=== PATIENT | female | born 1955 | race Caucasian/White ===

== ENCOUNTER → 2016-08-08 | Outpatient (CLI) | payer OTHER ==
[2016-08-08 12:50] LABS: MEAN CORPUSCULAR HEMOGLOBIN 33.4 pg (27.0-33.0); MEAN CORPUSCULAR VOLUME 104.4 fl (80.0-96.0); RED CELL DISTRIBUTION WIDTH 12.6 % (11.5-14.5); WHITE BLOOD COUNT 8.8 K/mm3 (4.0-10.0)
[2016-08-08 13:24] LABS: ALBUMIN/GLOBULIN RATIO 1.14 (1.00-1.93); ALKALINE PHOSPHATASE 66 U/L (45-117); ALT/SGPT 17 U/L (12-78); ANION GAP 5 MEQ/L (8-16); AST/SGOT 16 U/L (15-37); BILIRUBIN,TOTAL 0.6 MG/DL (0.2-1.0); BLOOD UREA NITROGEN 15 MG/DL (7-18); CALCIUM LEVEL 9.3 MG/DL (8.8-10.2); CARBON DIOXIDE LEVEL 29 MEQ/L (21-32); CHLORIDE LEVEL 107 MEQ/L (98-107); CHOLESTEROL LEVEL 217 MG/DL (<200); CREATININE FOR GFR 0.63 MG/DL (0.55-1.02); GLOMERULAR FILTRATION RATE > 60.0 (>45); GLUCOSE, FASTING 79 MG/DL (80-110); POTASSIUM SERUM 4.1 MEQ/L (3.5-5.1); SODIUM LEVEL 141 MEQ/L (136-145); TOTAL PROTEIN 7.5 GM/DL (6.4-8.2); TRIGLYCERIDES LEVEL 141 MG/DL (<150)
== END ==
LOC: M WUC 10:21
PROVIDERS: ATTEND Family Medicine
DX: E55.9 Vitamin D deficiency, unspecified (principal); I10 Essential (primary) hypertension

== ENCOUNTER → 2017-07-22 | Outpatient (CLI) | payer OTHER ==
[2017-07-22 16:52] LABS: BASO # 0.1 10^3/uL (0.0-0.2); BASO % 0.7 % (0.0-1.0); EOS # 0.1 10^3/uL (0.0-0.50); EOS % 0.9 % (0.0-3.0); HEMATOCRIT 44.7 % (36.0-47.0); HEMOGLOBIN 14.9 g/dl (12.0-15.5); IMMATURE GRANULOCYTE % 0.2 % (0-3.0); LYMPH # 2.9 10^3/uL (1.5-4.5); MEAN CORPUSCULAR HEMOGLOBIN 32.8 pg (27.0-33.0); MEAN CORPUSCULAR HGB CONC 33.3 g/dl (32.0-36.5); MEAN CORPUSCULAR VOLUME 98.5 fl (80.0-96.0); MONO # 0.6 10^3/uL (0.0-0.8); MONO % 7.4 % (0.0-5.0); NEUTROPHILS # 4.9 10^3/uL (1.8-7.7); NEUTROPHILS % 56.8 % (36.0-66.0); PLATELET COUNT, AUTOMATED 352 10^3/uL (150-450); RED BLOOD COUNT 4.54 10^6/uL (4.00-5.40); RED CELL DISTRIBUTION WIDTH 14.3 % (11.5-14.5); WHITE BLOOD COUNT 8.6 10^3/uL (4.0-10.0)
[2017-07-22 18:31] LABS: ACETAMINOPHEN LEVEL 6.8 UG/ML (10.0-30.0); ALBUMIN 3.9 GM/DL (3.2-5.2); ALBUMIN/GLOBULIN RATIO 1.11 (1.00-1.93); ALKALINE PHOSPHATASE 64 U/L (45-117); ALT/SGPT 22 U/L (12-78); ANION GAP 5 MEQ/L (8-16); AST/SGOT 20 U/L (7-37); BILIRUBIN,TOTAL 0.4 MG/DL (0.2-1.0); BLOOD UREA NITROGEN 17 MG/DL (7-18); CARBON DIOXIDE LEVEL 27 MEQ/L (21-32); CHLORIDE LEVEL 108 MEQ/L (98-107); CREATININE FOR GFR 0.65 MG/DL (0.55-1.30); GLOMERULAR FILTRATION RATE > 60.0 (>45); GLUCOSE, FASTING 99 MG/DL (70-100); POTASSIUM SERUM 4.3 MEQ/L (3.5-5.1); SODIUM LEVEL 140 MEQ/L (136-145); TOTAL PROTEIN 7.4 GM/DL (6.4-8.2)
== END ==
LOC: M WUC 14:28
DX: Z51.81 Encounter for therapeutic drug level monitoring (principal); Z79.899 Other long term (current) drug therapy
CPT/HCPCS: 80053

== ENCOUNTER → 2018-05-29 | Outpatient (CLI) | payer OTHER ==
--- NOTE | 2018-05-29 10:12 | REP ---
Clinical: Trauma. Technique: AP, lateral, bilateral oblique and sunrise views. Findings: Lateral view demonstrates a [id number] suprapatellar effusion along with prepatellar soft tissue swelling. No obvious acute fracture or dislocation is appreciated. The osseous structures appear intact. Impression: Moderate to large suprapatellar effusion and swelling. No obvious acute fracture. Electronically Signed by Stephen Blackman MD 05/29/2018 10:03 A
== END ==
LOC: M WUC 09:40
PROVIDERS: ATTEND Physician Assistant
DX: M25.462 Effusion, left knee (principal); S80.02XA Contusion of left knee, initial encounter; X58.XXXA Exposure to other specified factors, initial encounter; Y92.89 Other specified places as the place of occurrence of the external cause

== ENCOUNTER → 2018-08-24 | Outpatient (CLI) | payer OTHER ==
[2018-08-24 17:28] LABS: ALBUMIN 3.7 GM/DL (3.2-5.2); ALT/SGPT 20 U/L (12-78); BILIRUBIN,TOTAL 0.5 MG/DL (0.2-1.0); BLOOD UREA NITROGEN 18 MG/DL (7-18); CALCIUM LEVEL 9.1 MG/DL (8.8-10.2); CARBON DIOXIDE LEVEL 28 MEQ/L (21-32); CHLORIDE LEVEL 108 MEQ/L (98-107); CREATININE FOR GFR 0.83 MG/DL (0.55-1.30); GLOMERULAR FILTRATION RATE > 60.0 (>45); GLUCOSE, FASTING 88 MG/DL (70-100); POTASSIUM SERUM 4.3 MEQ/L (3.5-5.1); SODIUM LEVEL 142 MEQ/L (136-145); TOTAL PROTEIN 7.1 GM/DL (6.4-8.2)
[2018-08-24 17:33] LABS: TOTAL 25(OH) VITAMIN D 25.2 NG/ML (30.0-100.0)
[2018-08-24 17:39] LABS: BASO # 0.1 10^3/uL (0.0-0.2); BASO % 0.6 % (0.0-1.0); EOS # 0.1 10^3/uL (0.0-0.50); EOS % 0.6 % (0.0-3.0); HEMATOCRIT 47.7 % (36.0-47.0); LYMPH # 3.3 10^3/uL (1.5-4.5); LYMPH % 33.3 % (24.0-44.0); MEAN CORPUSCULAR HEMOGLOBIN 33.7 pg (27.0-33.0); MEAN CORPUSCULAR HGB CONC 33.5 g/dl (32.0-36.5); MEAN CORPUSCULAR VOLUME 100.4 fl (80.0-96.0); MONO # 0.7 10^3/uL (0.0-0.8); MONO % 7.5 % (0.0-5.0); NEUTROPHILS # 5.7 10^3/uL (1.8-7.7); NEUTROPHILS % 57.7 % (36.0-66.0); PLATELET COUNT, AUTOMATED 348 10^3/uL (150-450); RED BLOOD COUNT 4.75 10^6/uL (4.00-5.40); WHITE BLOOD COUNT 9.8 10^3/uL (4.0-10.0)
== END ==
LOC: M WUC 14:03
PROVIDERS: ATTEND Family Medicine
DX: Z79.899 Other long term (current) drug therapy (principal); I10 Essential (primary) hypertension

== ENCOUNTER → 2018-11-25 | Outpatient (REF) | payer OTHER ==
[2018-11-25 13:55] LABS: ALT/SGPT 14 U/L (12-78); BILIRUBIN,TOTAL 0.5 MG/DL (0.2-1.0); BLOOD UREA NITROGEN 16 MG/DL (7-18); CALCIUM LEVEL 9.7 MG/DL (8.8-10.2); CARBON DIOXIDE LEVEL 29 MEQ/L (21-32); CHLORIDE LEVEL 104 MEQ/L (98-107); CHOLESTEROL LEVEL 201 MG/DL (<200); CHOLESTEROL RISK RATIO 3.092 (<5); CREATININE FOR GFR 0.72 MG/DL (0.55-1.30); FREE T4 0.92 NG/DL (0.76-1.46); GLOMERULAR FILTRATION RATE > 60.0 (>45); GLUCOSE, FASTING 88 MG/DL (70-100); HDL CHOLESTEROL 65 MG/DL (>40); LDL CHOLESTEROL 117 MG/DL (<100); NON-HDL-C 136 MG/DL; POTASSIUM SERUM 4.3 MEQ/L (3.5-5.1); SODIUM LEVEL 141 MEQ/L (136-145); TOTAL 25(OH) VITAMIN D 31.1 NG/ML (30.0-100.0); TOTAL PROTEIN 7.7 GM/DL (6.4-8.2); TRIGLYCERIDES LEVEL 97 MG/DL (<150)
[2018-11-25 14:16] LABS: MALB URINE SIEMENS 76.4 MG/L; MAU/CREAT RATIO 51.2 MCG/MG (0.0-30.0)
== END ==
LOC: M SFHCPLAZ 10:07
PROVIDERS: ATTEND Nurse Practitioner Family
DX: E78.00 Pure hypercholesterolemia, unspecified (principal); I10 Essential (primary) hypertension; E55.9 Vitamin D deficiency, unspecified

== ENCOUNTER → 2018-12-22 | Outpatient (CLI) | payer OTHER ==
--- NOTE | 2018-12-22 18:50 | REP ---
Clinical: Hypertension and chronic medical renal disease. Technique: Davis scale and color Doppler evaluation of the kidneys and renal vasculature using curved array transducer. Findings: The kidneys are essentially normal in contour size and echogenicity and reniform shape without hydronephrosis, nephrolithiasis, or renal mass lesion. Right kidney measures 10.8 x 5.5 x 4.1 cm and includes 2.2 cm simple cyst. Left kidney measures 10.5 x 4.7 x 4.5 cm . Bladder is incompletely distended and grossly normal by current evaluation. Color Doppler evaluation of the renal vasculature demonstrates normal arterial wave patterns, velocities, renal aortic ratios, resistive indices and the acceleration time. No sonographic evidence for renal arterial stenosis noted. Renal vein is patent. Right Kidney: Peak arterial velocity: 89 cm/sec . Renal aortic ratio: 1.4 . Resistive indices: 0.61 - 0.69 . Acceleration times: 0.030 - 0.055 . Left kidney: Peak arterial velocity: 93 cm/sec . Renal aortic ratio: 1.4 . Resistive indices: 0.61 - 0.68 . Acceleration times: 0.028 - 0.034 . Impression: 2.2 cm simple right renal cyst. No evidence for renal arterial stenosis by sonographic evaluation. Electronically Signed by Stephen Blackman MD 12/22/2018 06:41 P
== END ==
LOC: M RAD 07:30
PROVIDERS: ATTEND Internal Medicine Cardiovascular Disease
DX: I10 Essential (primary) hypertension (principal); N28.1 Cyst of kidney, acquired

== ENCOUNTER → 2019-03-31 | Outpatient (CLI) | payer OTHER ==
[2019-03-31 17:24] LABS: ALBUMIN 4.2 GM/DL (3.2-5.2); ALT/SGPT 15 U/L (12-78); BILIRUBIN,TOTAL 0.6 MG/DL (0.2-1.0); BLOOD UREA NITROGEN 16 MG/DL (7-18); CALCIUM LEVEL 9.6 MG/DL (8.8-10.2); CARBON DIOXIDE LEVEL 30 MEQ/L (21-32); CHLORIDE LEVEL 104 MEQ/L (98-107); CHOLESTEROL LEVEL 209 MG/DL (<200); CHOLESTEROL RISK RATIO 3.426 (<5); CREATININE FOR GFR 0.73 MG/DL (0.55-1.30); GLOMERULAR FILTRATION RATE > 60.0 (>45); GLUCOSE, FASTING 108 MG/DL (70-100); HDL CHOLESTEROL 61 MG/DL (>40); LDL CHOLESTEROL 121 MG/DL (<100); NON-HDL-C 148 MG/DL; POTASSIUM SERUM 3.9 MEQ/L (3.5-5.1); SODIUM LEVEL 140 MEQ/L (136-145); TOTAL PROTEIN 7.8 GM/DL (6.4-8.2); TRIGLYCERIDES LEVEL 134 MG/DL (<150)
== END ==
LOC: M WUC 13:38
PROVIDERS: ATTEND Nurse Practitioner Family
DX: I10 Essential (primary) hypertension (principal)

== ENCOUNTER → 2019-05-11 | Outpatient (CLI) | payer OTHER ==
[2019-05-11 17:07] LABS: CALCIUM LEVEL 9.3 MG/DL (8.8-10.2); GLOMERULAR FILTRATION RATE 59.4 (>45); POTASSIUM SERUM 4.8 MEQ/L (3.5-5.1)
== END ==
LOC: M WUC 11:51
PROVIDERS: ATTEND Nurse Practitioner Family
DX: I10 Essential (primary) hypertension (principal)

== ENCOUNTER → 2019-09-15 | Outpatient (CLI) | payer OTHER, MEDICARE, MEDICAID ==
[2019-09-15 13:14] LABS: BLOOD UREA NITROGEN 19 MG/DL (7-18); CALCIUM LEVEL 8.8 MG/DL (8.8-10.2); CARBON DIOXIDE LEVEL 29 MEQ/L (21-32); CHLORIDE LEVEL 107 MEQ/L (98-107); CREATININE FOR GFR 0.66 MG/DL (0.55-1.30); GLOMERULAR FILTRATION RATE > 60.0 (>45); GLUCOSE, FASTING 87 MG/DL (70-100); POTASSIUM SERUM 3.9 MEQ/L (3.5-5.1); SODIUM LEVEL 142 MEQ/L (136-145)
== END ==
LOC: M WUC 09:52
PROVIDERS: ATTEND Physician Assistant
DX: I10 Essential (primary) hypertension (principal)

== ENCOUNTER → 2019-12-16 | Outpatient (REF) | payer OTHER, MEDICARE, MEDICAID | LOC: M LAB REF 16:15 | PROVIDERS: ATTEND Nurse Practitioner Family | DX: R30.0 Dysuria (principal) ==

== ENCOUNTER → 2020-05-22 | Outpatient (REF) | payer MEDICARE, OTHER ==
[2020-05-22 16:29] LABS: HEMATOCRIT 54.6 % (36.0-47.0); HEMOGLOBIN 17.7 g/dl (12.0-15.5); MEAN CORPUSCULAR HEMOGLOBIN 32.7 pg (27.0-33.0); MEAN CORPUSCULAR HGB CONC 32.4 g/dl (32.0-36.5); MEAN CORPUSCULAR VOLUME 100.9 fl (80.0-96.0); PLATELET COUNT, AUTOMATED 343 10^3/uL (150-450); RED BLOOD COUNT 5.41 10^6/uL (4.00-5.40); WHITE BLOOD COUNT 9.1 10^3/uL (4.0-10.0)
[2020-05-22 17:04] LABS: ALBUMIN 4.4 GM/DL (3.2-5.2); ALT/SGPT 17 U/L (12-78); BILIRUBIN,TOTAL 0.7 MG/DL (0.2-1.0); BLOOD UREA NITROGEN 21 MG/DL (7-18); CALCIUM LEVEL 9.5 MG/DL (8.8-10.2); CARBON DIOXIDE LEVEL 30 MEQ/L (21-32); CHLORIDE LEVEL 105 MEQ/L (98-107); CHOLESTEROL LEVEL 205 MG/DL (<200); CHOLESTEROL RISK RATIO 3.203 (<5); CREATININE FOR GFR 0.72 MG/DL (0.55-1.30); GLOMERULAR FILTRATION RATE > 60.0 (>45); GLUCOSE, FASTING 88 MG/DL (70-100); HDL CHOLESTEROL 64 MG/DL (>40); LDL CHOLESTEROL 116 MG/DL (<100); NON-HDL-C 141 MG/DL; POTASSIUM SERUM 4.9 MEQ/L (3.5-5.1); SODIUM LEVEL 139 MEQ/L (136-145); TOTAL PROTEIN 8.1 GM/DL (6.4-8.2); TRIGLYCERIDES LEVEL 123 MG/DL (<150)
== END ==
LOC: M LAB REF 15:54
PROVIDERS: ATTEND Physician Assistant
DX: I10 Essential (primary) hypertension (principal); E55.9 Vitamin D deficiency, unspecified

== ENCOUNTER → 2020-05-29 | Outpatient (REF) | payer MEDICARE, OTHER | LOC: M LAB REF 16:01 | PROVIDERS: ATTEND Pediatrics | DX: D75.1 Secondary polycythemia (principal) ==

== ENCOUNTER → 2020-06-20 | Outpatient (CLI) | payer MEDICARE, OTHER ==
--- NOTE | 2020-06-20 15:39 | DEXAMM ---
INDICATION: MENOPAUSAL. COMPARISON: None. TECHNIQUE: Bone density was measured using dual-energy x-ray absorptionmetry (DEXA). FINDINGS: AP SPINE L1-L4 BMD 0.798 g/cm2 Young Adult T-Score -3.2 Age Matched Z-Score -1.6. LT FEMUR, TOTAL BMD 0.605 g/cm2 Young Adult T-Score -3.2 Age Matched Z-Score -2.0. LT NECK BMD 0.601 g/cm2 Young Adult T-Score -3.1 Age Matched Z-Score -1.7. RT FEMUR, TOTAL BMD 0.620 g/cm2 Young Adult T-Score -3.1 Age Matched Z-Score -1.9. RT NECK BMD 0.605 g/cm2 Young Adult T-Score -3.1 Age Matched Z-Score -1.6. IMPRESSION: There is osteoporosis of the spine. There is this osteoporosis of the left hip. There is osteoporosis of the right hip. FOLLOW-UP: Recommendation for the next bone density exam: 2 years. <Electronically signed by Bandar Cassidy > 06/20/20 [id number]
== END ==
LOC: M WHC 14:28
PROVIDERS: ATTEND Pediatrics
DX: N95.1 Menopausal and female climacteric states (principal); M85.89 Other specified disorders of bone density and structure, multiple sites

== ENCOUNTER → 2021-08-05 | Outpatient (CLI) | payer MEDICARE, OTHER | LOC: M WUC 12:00 | PROVIDERS: ATTEND Physician Assistant | DX: M79.661 Pain in right lower leg (principal) ==

== ENCOUNTER → 2021-09-04 | Outpatient (CLI) | payer MEDICARE, OTHER | LOC: M WUC 08:40 | PROVIDERS: ATTEND Family Medicine Addiction Medicine | DX: R07.81 Pleurodynia (principal) ==

== ENCOUNTER 2021-11-19 09:45 | Emergency (ER) | payer MEDICARE, OTHER ==
[~2021-11-19] VITALS: Ht 162.6 cm; Wt 47.2 kg
[2021-11-19 09:47] VITALS: BP 150/60
== END 2021-11-19 10:32 | disposition left against medical advice (07) ==
LOC: M ED 09:45
DX: Z53.21 Procedure and treatment not carried out due to patient leaving prior to being seen by health care provider (principal)

== ENCOUNTER → 2021-11-26 | Outpatient (CLI) | payer MEDICARE, OTHER ==
[2021-11-26 17:28] LABS: CREATININE FOR GFR 1.02 MG/DL (0.55-1.30); GLOMERULAR FILTRATION RATE 57.5 (>45)
== END ==
LOC: M WUC 13:54
PROVIDERS: ATTEND Physical Medicine & Rehabilitation
DX: M50.31 Other cervical disc degeneration, high cervical region (principal)

== ENCOUNTER → 2021-12-30 | Outpatient (CLI) | payer OTHER ==
[~2021-12-30] MED LIST: PROHANCE 279.3MG/ML 5ML VIAL ONE
== END ==
LOC: M PLAIMG 08:55
PROVIDERS: ATTEND Physical Medicine & Rehabilitation
DX: M50.31 Other cervical disc degeneration, high cervical region (principal)
CPT/HCPCS: 72156; A9576

== ENCOUNTER → 2022-03-25 | Outpatient (CLI) | payer OTHER ==
[2022-03-25 09:51] LABS: PLATELET COUNT, AUTOMATED 318 10^3/uL (150-450)
[2022-03-25 10:02] LABS: INR 0.82; PROTHROMBIN TIME 11.5 SECONDS (12.5-14.5)
[2022-03-25 10:03] LABS: PARTIAL THROMBOPLASTIN TIME 31.8 SECONDS (24.8-34.2)
[2022-03-25 10:07] LABS: COLLAGEN EPINEPHRINE 165 SECONDS (74-162)
[2022-03-25 10:30] LABS: COLLAGEN ADP 101 SECONDS (56-103)
== END ==
LOC: M WUC 08:11
PROVIDERS: ATTEND Physical Medicine & Rehabilitation
DX: M47.892 Other spondylosis, cervical region (principal)

== ENCOUNTER → 2022-03-28 | Outpatient (CLI) | payer OTHER ==
[2022-03-28 10:48] LABS: COLLAGEN EPINEPHRINE 155 SECONDS (74-162)
== END ==
LOC: M WUC 09:03
PROVIDERS: ATTEND Physical Medicine & Rehabilitation
DX: Z01.818 Encounter for other preprocedural examination (principal)

== ENCOUNTER → 2022-04-17 | Outpatient (REF) | payer OTHER, MEDICARE ==
[2022-04-17 16:56] LABS: BASO # 0.1 10^3/uL (0.0-0.2); BASO % 0.7 % (0.0-1.0); EOS # 0.1 10^3/uL (0.0-0.5); EOS % 0.7 % (0.0-3.0); HEMATOCRIT 48.8 % (36.0-47.0); HEMOGLOBIN 15.9 g/dl (12.0-15.5); LYMPH # 2.2 10^3/uL (1.5-5.0); LYMPH % 28.4 % (24.0-44.0); MEAN CORPUSCULAR HEMOGLOBIN 33.5 pg (27.0-33.0); MEAN CORPUSCULAR HGB CONC 32.6 g/dl (32.0-36.5); MEAN CORPUSCULAR VOLUME 102.7 fl (80.0-96.0); MONO # 0.5 10^3/uL (0.0-0.8); MONO % 6.4 % (2.0-8.0); NEUTROPHILS # 4.9 10^3/uL (1.5-8.5); NEUTROPHILS % 63.3 % (36.0-66.0); PLATELET COUNT, AUTOMATED 298 10^3/uL (150-450); RED BLOOD COUNT 4.75 10^6/uL (4.00-5.40); WHITE BLOOD COUNT 7.7 10^3/uL (4.0-10.0)
[2022-04-17 17:03] LABS: BLOOD UREA NITROGEN 15 MG/DL (9-23); CALCIUM LEVEL 9.4 MG/DL (8.3-10.6); CARBON DIOXIDE LEVEL 31 MMOL/L (20-31); CHLORIDE LEVEL 105 MMOL/L (98-107); CHOLESTEROL LEVEL 196 MG/DL (<200); CHOLESTEROL RISK RATIO 2.74 (<5); CREATININE FOR GFR 0.71 MG/DL (0.55-1.30); GLOMERULAR FILTRATION RATE > 60.0 (>45); GLUCOSE, FASTING 80 MG/DL (74-106); HDL CHOLESTEROL 71.3 MG/DL (>40); LDL CHOLESTEROL 102.7 MG/DL (<100); NON-HDL-C 125 MG/DL; POTASSIUM SERUM 4.4 MMOL/L (3.5-5.1); SODIUM LEVEL 141 MMOL/L (136-145); TRIGLYCERIDES LEVEL 110 MG/DL (<150)
[2022-04-17 17:05] LABS: FREE T4 0.96 NG/DL (0.89-1.76); THYROID STIMULATING HORMONE 1.233 uIU/ML (0.55-4.78)
== END ==
LOC: M LAB REF 16:27
PROVIDERS: ATTEND Physician Assistant
DX: I09.9 Rheumatic heart disease, unspecified (principal); I77.810 Thoracic aortic ectasia; I10 Essential (primary) hypertension; I27.20 Pulmonary hypertension, unspecified; R94.31 Abnormal electrocardiogram [ECG] [EKG]

== ENCOUNTER → 2022-05-01 | Outpatient (CLI) | payer MEDICARE, OTHER | LOC: M WUC 12:34 | PROVIDERS: ATTEND Physician Assistant | DX: M79.605 Pain in left leg (principal); M25.552 Pain in left hip ==

== ENCOUNTER → 2022-07-04 | Outpatient (CLI) | payer MEDICARE, OTHER | LOC: M WUC 11:59 | PROVIDERS: ATTEND Physician Assistant | DX: M25.561 Pain in right knee (principal); M79.605 Pain in left leg ==

== ENCOUNTER → 2022-07-16 | Outpatient (CLI) | payer MEDICARE, OTHER | LOC: M WHC 10:17 | PROVIDERS: ATTEND Physician Assistant | DX: M81.0 Age-related osteoporosis without current pathological fracture (principal); Z12.31 Encounter for screening mammogram for malignant neoplasm of breast ==

== ENCOUNTER → 2022-07-31 | Outpatient (CLI) | payer MEDICARE, OTHER | LOC: M WHC 07:53 | PROVIDERS: ATTEND Physician Assistant | DX: R92.2 Inconclusive mammogram (principal) | CPT/HCPCS: 77065; G0279 ==

== ENCOUNTER → 2022-10-07 | Outpatient (CLI) | payer MEDICARE, OTHER | LOC: M CARPUL 12:53 | PROVIDERS: ATTEND Pediatrics | DX: I77.810 Thoracic aortic ectasia (principal) ==

== ENCOUNTER → 2023-01-01 | Outpatient (REF) | payer MEDICARE, OTHER ==
[2023-01-01 18:51] LABS: CREATININE, URINE 201.7 MG/DL; MAU/CREAT RATIO 29.7 MCG/MG (0.0-30.0)
== END ==
LOC: M LAB REF 17:56
PROVIDERS: ATTEND Nurse Practitioner Family
DX: I10 Essential (primary) hypertension (principal)

== ENCOUNTER → 2023-04-02 | Outpatient (REF) | payer MEDICARE, OTHER ==
[2023-04-02 18:29] LABS: BASO # 0.1 10^3/uL (0.0-0.2); BASO % 0.9 % (0.0-1.0); EOS # 0.1 10^3/uL (0.0-0.5); EOS % 1.5 % (0.0-3.0); HEMATOCRIT 49.2 % (36.0-47.0); HEMOGLOBIN 16.5 g/dl (12.0-15.5); LYMPH # 2.6 10^3/uL (1.5-5.0); LYMPH % 32.6 % (24.0-44.0); MEAN CORPUSCULAR HEMOGLOBIN 34.2 pg (27.0-33.0); MEAN CORPUSCULAR HGB CONC 33.5 g/dl (32.0-36.5); MEAN CORPUSCULAR VOLUME 101.9 fl (80.0-96.0); MONO # 0.8 10^3/uL (0.0-0.8); MONO % 9.8 % (2.0-8.0); NEUTROPHILS # 4.3 10^3/uL (1.5-8.5); NEUTROPHILS % 54.7 % (36.0-66.0); PLATELET COUNT, AUTOMATED 306 10^3/uL (150-450); RED BLOOD COUNT 4.83 10^6/uL (4.00-5.40); WHITE BLOOD COUNT 7.9 10^3/uL (4.0-10.0)
[2023-04-02 18:52] LABS: LIPASE 26 U/L (12-53)
[2023-04-02 18:54] LABS: ALBUMIN 3.7 G/DL (3.2-5.2); ALKALINE PHOSPHATASE 76 U/L (46-116); ALT/SGPT 16 U/L (7.0-40); AST/SGOT 21 U/L (<34); BILIRUBIN,TOTAL 0.4 MG/DL (0.3-1.2); BLOOD UREA NITROGEN 22 MG/DL (9-23); CALCIUM LEVEL 9.4 MG/DL (8.3-10.6); CARBON DIOXIDE LEVEL 33 MMOL/L (20-31); CHLORIDE LEVEL 102 MMOL/L (98-107); CREATININE FOR GFR 0.72 MG/DL (0.55-1.30); GLOMERULAR FILTRATION RATE > 60.0 (>45); GLUCOSE, FASTING 90 MG/DL (74-106); POTASSIUM SERUM 4.7 MMOL/L (3.5-5.1); SODIUM LEVEL 138 MMOL/L (136-145); THYROID STIMULATING HORMONE 1.054 uIU/ML (0.55-4.78); TOTAL PROTEIN 7.5 G/DL (5.7-8.2)
[2023-04-02 18:55] LABS: TOTAL 25(OH) VITAMIN D 82.2 NG/ML (20.0-100.0)
[2023-04-02 19:33] LABS: HEPATITIS C VIRUS ABY INDEX < 0.02 INDEX (<0.8)
== END ==
LOC: M LAB REF 16:46
PROVIDERS: ATTEND Nurse Practitioner Family
DX: I10 Essential (primary) hypertension (principal); K58.9 Irritable bowel syndrome, unspecified; K21.9 Gastro-esophageal reflux disease without esophagitis; E55.9 Vitamin D deficiency, unspecified; R63.6 Underweight; Z11.9 Encounter for screening for infectious and parasitic diseases, unspecified

== ENCOUNTER → 2023-04-25 | Outpatient (CLI) | payer MEDICARE, OTHER | LOC: M RAD 13:27 | PROVIDERS: ATTEND Physician Assistant | DX: M54.50 Low back pain, unspecified (principal); M47.814 Spondylosis without myelopathy or radiculopathy, thoracic region; M47.816 Spondylosis without myelopathy or radiculopathy, lumbar region; Z91.81 History of falling ==

== ENCOUNTER → 2023-09-14 | Outpatient (CLI) | payer MEDICARE, OTHER ==
[2023-09-14 18:30] LABS: BASO # 0.1 10^3/uL (0.0-0.2); BASO % 0.7 % (0.0-1.0); EOS # 0.1 10^3/uL (0.0-0.5); EOS % 1.3 % (0.0-3.0); HEMATOCRIT 54.7 % (36.0-47.0); LYMPH # 2.9 10^3/uL (1.5-5.0); LYMPH % 33.7 % (24.0-44.0); MEAN CORPUSCULAR HEMOGLOBIN 34.4 pg (27.0-33.0); MEAN CORPUSCULAR HGB CONC 32.9 g/dl (32.0-36.5); MEAN CORPUSCULAR VOLUME 104.6 fl (80.0-96.0); MONO # 0.7 10^3/uL (0.0-0.8); MONO % 8.1 % (2.0-8.0); NEUTROPHILS # 4.8 10^3/uL (1.5-8.5); NEUTROPHILS % 56.1 % (36.0-66.0); PLATELET COUNT, AUTOMATED 279 10^3/uL (150-450); RED BLOOD COUNT 5.23 10^6/uL (4.00-5.40); WHITE BLOOD COUNT 8.6 10^3/uL (4.0-10.0)
[2023-09-14 18:32] LABS: C REACTIVE PROTEIN QUANTITATIV < 0.40 MG/DL (<1.0)
[2023-09-14 18:33] LABS: ALBUMIN 4.4 G/DL (3.2-5.2); ALKALINE PHOSPHATASE 56 U/L (46-116); ALT/SGPT 15 U/L (7.0-40); AST/SGOT 14 U/L (<34); BILIRUBIN,TOTAL 0.5 MG/DL (0.3-1.2); BLOOD UREA NITROGEN 24 MG/DL (9-23); CALCIUM LEVEL 9.9 MG/DL (8.3-10.6); CARBON DIOXIDE LEVEL 34 MMOL/L (20-31); CHLORIDE LEVEL 104 MMOL/L (98-107); CREATININE FOR GFR 0.94 MG/DL (0.55-1.30); GLOMERULAR FILTRATION RATE > 60.0 (>45); GLUCOSE, FASTING 98 MG/DL (74-106); POTASSIUM SERUM 3.5 MMOL/L (3.5-5.1); SODIUM LEVEL 141 MMOL/L (136-145); TOTAL PROTEIN 7.5 G/DL (5.7-8.2)
[2023-09-14 18:35] LABS: THYROID STIMULATING HORMONE 1.322 uIU/ML (0.55-4.78)
[2023-09-14 18:36] LABS: FREE T4 0.94 NG/DL (0.89-1.76)
[2023-09-14 18:52] LABS: HEPATITIS B SURFACE ANTIGEN NEGATIVE (NEGATIVE)
[2023-09-14 18:54] LABS: ERYTHROCYTE SEDIMENTATION RATE 21 mm/hr (0-30)
[2023-09-14 19:06] LABS: HEMOGLOBIN A1c 5.2 % (4.0-6.0)
[2023-09-14 19:07] LABS: HIV 1&2 SCREEN NEGATIVE (NEGATIVE)
[2023-09-14 19:14] LABS: HEPATITIS B CORE ANTIBODY IGM NEGATIVE (NEGATIVE); HEPATITIS C VIRUS ABY INDEX < 0.02 INDEX (<0.8)
[2023-09-14 20:11] LABS: MONO SCRN NEGATIVE (NEGATIVE)
[2023-09-18 18:32] LABS: LYME TOTAL ANTIBODY CIA <= 0.90 Index (<=0.90)
== END ==
LOC: M WUC 12:32
PROVIDERS: ATTEND Nurse Practitioner Family
DX: R63.4 Abnormal weight loss (principal); M41.9 Scoliosis, unspecified; S22.42XA Multiple fractures of ribs, left side, initial encounter for closed fracture; Y93.9 Activity, unspecified; Y92.9 Unspecified place or not applicable; Y99.8 Other external cause status

== ENCOUNTER 2023-11-25 08:10 | Day surgery (SDC) | payer MEDICARE, OTHER ==
[~2023-11-25] VITALS: Ht 165.1 cm; Wt 42.5 kg
[~2023-11-25 08:10] MED LIST changes: +ACET-841 PO; +ALEN70TA87 PO; +ALPR1TAB3 PO; +ATOR1TAB19 PO; +CYAN500T14 PO; +ESOM20CA2 PO; +HYDR-3363 PO; +INDA1.253 PO; +LIDO5DIS41 TD; +NEOM1SUS14 OU; +OLME40TA PO; -PROHANCE 279.3MG/ML 5ML VIAL ONE; +VENTAER INH; +VITA100093 PO
[2023-11-25] MEDS ORDERED: LIDOCAINE 2% 100MG/5ML SDV (FOR ANES.) As Ordered ONE (08:28)
[2023-11-25] MEDS ORDERED: dexmedeTOMIDine (4MCG/ML)200MCG/50ML BTL (PRECEDEX) As Ordered ONE (08:28)
[2023-11-25] MEDS ORDERED: propofoL 200 MG/20 ML VIAL As Ordered ONE (08:28)
[2023-11-25] MEDS: NS 1,000 ML IV ONE (08:51)
[2023-11-25 10:07] VITALS: TEMP 97.8
[2023-11-25 10:25] VITALS: BP 103/71; O2SAT 99
== END 2023-11-25 10:31 | disposition home or self-care (01) ==
LOC: M OPP 08:10
PROVIDERS: ATTEND Surgery
DX: K92.1 Melena (principal); K64.0 First degree hemorrhoids; K29.70 Gastritis, unspecified, without bleeding; K44.9 Diaphragmatic hernia without obstruction or gangrene; I10 Essential (primary) hypertension; E78.00 Pure hypercholesterolemia, unspecified; K58.9 Irritable bowel syndrome, unspecified; K21.9 Gastro-esophageal reflux disease without esophagitis; M19.90 Unspecified osteoarthritis, unspecified site; F41.9 Anxiety disorder, unspecified; F32.A Depression, unspecified; F43.10 Post-traumatic stress disorder, unspecified; F17.210 Nicotine dependence, cigarettes, uncomplicated; Z88.1 Allergy status to other antibiotic agents; Z88.8 Allergy status to other drugs, medicaments and biological substances; Z79.899 Other long term (current) drug therapy

== ENCOUNTER → 2023-12-24 | Outpatient (CLI) | payer MEDICARE, OTHER | LOC: M RAD 10:28 | PROVIDERS: ATTEND Physician Assistant | DX: Z12.2 Encounter for screening for malignant neoplasm of respiratory organs (principal); F17.210 Nicotine dependence, cigarettes, uncomplicated; R91.1 Solitary pulmonary nodule ==

== ENCOUNTER → 2024-10-17 | Outpatient (CLI) | payer MEDICARE, OTHER ==
[~2024-10-17] MED LIST changes: +LIDO1ADH93 TD; -LIDO5DIS41 TD
== END ==
LOC: M WUC 12:30
PROVIDERS: ATTEND Student in an Organized Health Care Education/Training Program
DX: M54.50 Low back pain, unspecified (principal)

== ENCOUNTER → 2025-01-03 | Outpatient (CLI) | payer MEDICARE | LOC: M WUC 11:16 | PROVIDERS: ATTEND Student in an Organized Health Care Education/Training Program | DX: M25.512 Pain in left shoulder (principal); M19.012 Primary osteoarthritis, left shoulder ==

== ENCOUNTER → 2025-01-06 | Outpatient (REF) | payer MEDICARE, MEDICAID ==
[2025-01-06 18:18] LABS: ESTIMATED AVERAGE GLUCOSE 108.0 MG/DL (60-110)
[2025-01-06 18:23] LABS: ALT/SGPT 19.0 U/L (7.0-40); AST/SGOT 23.0 U/L (<34); CALCIUM LEVEL 10.3 MG/DL (8.3-10.6); CARBON DIOXIDE LEVEL 28.0 MMOL/L (20-31); CHLORIDE LEVEL 104.0 MMOL/L (98-107); CREATININE FOR GFR 1.16 MG/DL (0.55-1.30); GLOMERULAR FILTRATION RATE 50.7 (>39); IRON (FE) 89.0 UG/DL (50-170); PERCENT SATURATION 31.2 % (13.2-45.0); POTASSIUM SERUM 4.1 MMOL/L (3.5-5.1); SODIUM LEVEL 142.0 MMOL/L (136-145)
== END ==
LOC: M LAB REF 17:09
PROVIDERS: ATTEND Nurse Practitioner Family
DX: R63.6 Underweight (principal); L65.9 Nonscarring hair loss, unspecified; Z68.1 Body mass index [BMI] 19.9 or less, adult; Z79.899 Other long term (current) drug therapy

== ENCOUNTER → 2025-01-30 | Outpatient (CLI) | payer MEDICARE, MEDICAID ==
[2025-01-30 13:59] LABS: BASO # 0.1 10^3/uL (0.0-0.2); BASO % 0.6 % (0.0-1.0); EOS # 0.0 10^3/uL (0.0-0.5); EOS % 0.4 % (0.0-3.0); LYMPH # 3.0 10^3/uL (1.5-5.0); LYMPH % 27.0 % (24.0-44.0); MONO # 1.0 10^3/uL (0.0-0.8); MONO % 9.1 % (2.0-8.0); NEUTROPHILS # 7.0 10^3/uL (1.5-8.5); NEUTROPHILS % 62.5 % (36.0-66.0); PLATELET COUNT, AUTOMATED 421 10^3/uL (150-450)
[2025-01-30 14:32] LABS: CHOLESTEROL LEVEL 149.0 MG/DL (<200); CHOLESTEROL RISK RATIO 2.76 (<5); LDL CHOLESTEROL 63.7 MG/DL (<100); NON-HDL-C 95.1 MG/DL; TRIGLYCERIDES LEVEL 157.0 MG/DL (<150)
[2025-01-30 14:33] LABS: TOTAL 25(OH) VITAMIN D 45.8 NG/ML (20.0-100.0)
== END ==
LOC: M WUC 10:22
PROVIDERS: ATTEND Nurse Practitioner Family
DX: E55.9 Vitamin D deficiency, unspecified (principal); Z68.1 Body mass index [BMI] 19.9 or less, adult; L65.9 Nonscarring hair loss, unspecified; R63.6 Underweight; Z79.899 Other long term (current) drug therapy

== ENCOUNTER → 2025-02-22 | Outpatient (CLI) | payer MEDICARE, OTHER | LOC: M RAD 08:57 | PROVIDERS: ATTEND Surgery Vascular Surgery | DX: I71.43 Infrarenal abdominal aortic aneurysm, without rupture (principal) ==